=== PATIENT | female | born 1970 ===

== ENCOUNTER 2017-03-31 15:01 | Emergency (ER) | payer BC ==
[2017-03-31 15:15] VITALS: BP 107/70; PULSE 80; RESP 16; TEMP 98.2; O2SAT 99
--- NOTE | 2017-03-31 15:42 | ED PDOC ---
HPI: General Adult Time Seen by Provider: 03/31/17 15:21 Chief Complaint (Nursing): Cough, Cold, Congestion Chief Complaint (Provider): Cough, Cold, Congestion History Per: Patient History/Exam Limitations: no limitations Onset/Duration Of Symptoms: Days (x 3) Current Symptoms Are (Timing): Still Present Additional Complaint(s): 46 year old female presents to the ED complaining of sinus and nasal congestion with associated mild, dry cough, onset 3 days ago. Patient has pressure sensation to face and sinuses. She also has headache. Patient denies fever or chills. Has slight body aches. Patient denies nausea or vomiting. PMD: Dr. Christian Hughes MD Past Medical History Reviewed: Historical Data, Nursing Documentation, Vital Signs Vital Signs: Last Vital Signs Temp 98.2 F 03/31/17 15:12 Pulse 80 03/31/17 15:12 Resp 16 03/31/17 15:12 BP 107/70 03/31/17 15:12 Pulse Ox 99 03/31/17 15:50 - Medical History Other PMH: Colitis - Surgical History Surgical History: (x 2) - Family History Family History: States: No Known Family Hx - Living Arrangements Living Arrangements: With Family - Social History Current smoker - smoking cessation education provided: No Alcohol: None Drugs: Denies - Home Medications Home Medications: Ambulatory Orders Medication Instructions Recorded Azithromycin [Zithromax] 250 mg PO DAILY #6 tab 03/31/17 Fluticasone Nasal [Flonase] 1 spray NS DAILY #1 bottle 03/31/17 Mercaptopurine [6-Mp] 50 mg PO DAILY 03/31/17 Oseltamivir Phosphate [Tamiflu] 75 mg PO BID #10 capsule 03/31/17 - Allergies Allergies/Adverse Reactions: Allergies Allergy/AdvReac Type Severity Reaction Status Date / Time No Known Allergies Allergy Verified 03/31/17 15:12 Review of Systems ROS Statement: Except As Marked, All Systems Reviewed And Found Negative Constitutional: Positive for: Other (body aches). Negative for: Fever, Chills ENT: Positive for: Nose Congestion (and sinus congestion) Respiratory: Positive for: Cough. Negative for: Shortness of Breath, Hemoptysis , SOB with Exertion, Sputum Gastrointestinal: Negative for: Nausea, Vomiting Neurological: Positive for: Headache. Negative for: Dizziness Physical Exam - Reviewed Nursing Documentation Reviewed: Yes Vital Signs Reviewed: Yes - Physical Exam Appears: Positive for: Well, Non-toxic, No Acute Distress Head Exam: Positive for: ATRAUMATIC, NORMAL INSPECTION, NORMOCEPHALIC Skin: Positive for: Normal Color, Warm. Negative for: Rash Eye Exam: Positive for: EOMI, Normal appearance, PERRL ENT: Positive for: TM Is/Are (normal bilaterally), Nasal Congestion (moderate sinus and nasal congestion). Negative for: Pharyngeal Erythema, Tonsillar Swelling Neck: Positive for: Normal, Painless ROM, Supple Cardiovascular/Chest: Positive for: Regular Rate, Rhythm Respiratory: Positive for: Normal Breath Sounds. Negative for: Rhonchi, Wheezing, Respiratory Distress Extremity: Positive for: Normal ROM. Negative for: Pedal Edema Neurologic/Psych: Positive for: Alert, Oriented - ECG O2 Sat by Pulse Oximetry: 99 (RA) Pulse Ox Interpretation: Normal Medical Decision Making Medical Decision Making: Time: Impression: Sinusitis/URI Plan: Will treat with prescriptions for Tamiflu, Zithromax and Flonase. Advised Tylenol for pain as needed, rest and fluids. Patient instructed to follow up next week with primary doctor or [facility]ED at any time if worse. Disposition - Clinical Impression Clinical Impression: Sinusitis - Patient ED Disposition Is Patient to be Admitted: No Counseled Patient/Family Regarding: Diagnosis, Need For Followup, Rx Given - Disposition Referrals: Velma Dinh [Medical Doctor] - Disposition: Routine/Home Disposition Time: 15:57 Condition: STABLE Additional Instructions: Take rx meds as directed. Follow up with primary care doctor in 2-3 days. Prescriptions: Azithromycin [Zithromax] 250 mg PO DAILY #6 tab Fluticasone Nasal [Flonase] 1 spray NS DAILY #1 bottle Oseltamivir Phosphate [Tamiflu] 75 mg PO BID #10 capsule Instructions: Sinusitis in Adults Forms: [employer] (Citizen Of [place])
== END 2017-03-31 16:03 | disposition home or self-care (01) ==
LOC: H.ER 15:01
DX: J32.9 Chronic sinusitis, unspecified (principal)